=== PATIENT | female | born 1935 | race Caucasian/White ===

== ENCOUNTER 2018-02-17 10:20 | Day surgery (SDC) | payer MEDICARE ==
[2018-02-17] VITALS (8 sets, daily range): BP systolic 131–174; BP diastolic 64–82
[~2018-02-17] VITALS: Ht 152.4 cm; Wt 57.3 kg
[2018-02-17] MEDS ORDERED: sod bicarbonate 150mEq in D5W 1,150 ML IV ONE (10:50)
[2018-02-17] MEDS ORDERED: diphenhydrAMINE 25mg capsule PO PRN (10:55)
[2018-02-17 12:07] LABS: BASOPHILS % (AUTO) 0.6 % (0-1); EOSINOPHILS # (AUTO) 0.1 X10'3 (0-0.9); EOSINOPHILS % (AUTO) 2.3 % (0-6); HEMATOCRIT 38.8 % (35.0-45.0); LYMPHOCYTES # (AUTO) 1.6 X10'3 (1.1-4.8); LYMPHOCYTES % (AUTO) 24.4 % (21-51); MEAN CORPUSCULAR HEMOGLOBIN 31.3 PG (27.0-31.0); MEAN CORPUSCULAR HGB CONC 33.5 % (33.0-36.5); MEAN CORPUSCULAR VOLUME 93.4 FL (78-98); MEAN PLATELET VOLUME 8.7 FL (7.4-10.4); MONOCYTES # (AUTO) 0.4 X10'3 (0-0.9); MONOCYTES % (AUTO) 6.5 % (2-12); NEUTROPHILS # (AUTO) 4.3 X10'3 (1.8-7.7); NEUTROPHILS % (AUTO) 66.2 % (42-75); PLATELET COUNT 304 X10'3 (140-440); RED BLOOD COUNT 4.15 X10'6 (4.20-5.60); RED CELL DISTRIBUTION WIDTH 12.2 % (11.5-14.5); WHITE BLOOD COUNT 6.4 X10'3 (4.5-11.0)
[2018-02-17 12:14] LABS: ALBUMIN 3.9 G/DL (3.4-5.0); ANION GAP 10 (8-16); BLOOD UREA NITROGEN 21 MG/DL (7-18); BUN/CREATININE RATIO 22.8 (6.6-38.0); CALCIUM 9.3 MG/DL (8.5-10.1); CHLORIDE 103 MMOL/L (99-107); CREATININE 0.92 MG/DL (0.40-0.90); GLUCOSE 89 MG/DL (70-104); MAGNESIUM 2.3 MG/DL (1.5-2.4); POTASSIUM 4.3 MMOL/L (3.5-5.1); SODIUM 140 MMOL/L (135-145); TOTAL CARBON DIOXIDE 27.5 MMOL/L (24-32); eGFR 59 ML/MIN
[2018-02-17 12:38] LABS: PROTHROMBIN TIME 10.4 SECONDS (9.0-12.0)
[2018-02-17] MEDS ORDERED: OMEP20CA10 PO (12:41)
[2018-02-17] MEDS ORDERED: LISI40TA4 PO (12:41)
[2018-02-17] MEDS ORDERED: MULT-38 PO (12:41)
[2018-02-17] MEDS ORDERED: GLUC-193 PO (12:41)
[2018-02-17] MEDS ORDERED: potassium chloride PO (12:41)
[2018-02-17] MEDS ORDERED: AMLO5TAB7 PO (12:41)
[2018-02-17] MEDS ORDERED: ASCO500C15 PO (12:41)
[2018-02-17] MEDS ORDERED: CHOL400T PO (12:41)
[2018-02-17] MEDS ORDERED: OMEG1CAP45 PO (12:41)
[2018-02-17] MEDS ORDERED: DABI75CA3 PO (12:41)
[2018-02-17] MEDS ORDERED: iohexol 350 MG/ML 50ML vial IV ONE (13:08)
[2018-02-17] MEDS ORDERED: LIDOcaine 1% (10mg/ml)w/preservative injection 20ml MDV ONE (13:08)
[2018-02-17] MEDS ORDERED: fentaNYL/PF 50MCG/1 ML 2ML syringe ONE (13:08)
[2018-02-17] MEDS ORDERED: midazolam 2 mg/2 ml injection ONE (13:08)
[2018-02-17] MEDS ORDERED: iohexol 350MG/ML 100ml bottle IV ONE (13:08)
[2018-02-17] MEDS ORDERED: ketorolac tromethamine 15mg/ml inj. IV ONE (14:25)
== END 2018-02-17 17:30 | disposition home or self-care (01) ==
LOC: SSTAY O 10:20
PROVIDERS: ATTEND Internal Medicine Cardiovascular Disease
DX: R94.39 Abnormal result of other cardiovascular function study (principal); R07.2 Precordial pain; I10 Essential (primary) hypertension; I48.0 Paroxysmal atrial fibrillation; K21.9 Gastro-esophageal reflux disease without esophagitis; M19.90 Unspecified osteoarthritis, unspecified site; Z87.891 Personal history of nicotine dependence; Z79.899 Other long term (current) drug therapy; Z96.642 Presence of left artificial hip joint; Z96.619 Presence of unspecified artificial shoulder joint; Z98.890 Other specified postprocedural states; Z88.0 Allergy status to penicillin; Z88.8 Allergy status to other drugs, medicaments and biological substances; Z88.5 Allergy status to narcotic agent
CPT/HCPCS: 36415; 80048; 83735; 85025; 85610; 93005; 93458; 99152; 99153; A6257; C1760; C1769; C1894; J1644; J1885; J2001; J2250; J3010; Q0163; Q9967; A4620